=== PATIENT | male | born 1950 | race Caucasian/White ===

== ENCOUNTER 2017-11-02 11:34 | Emergency (ER) | payer OTHER ==
[~2017-11-02] VITALS: Ht 175.3 cm; Wt 97.4 kg
[~2017-11-02 11:34] MED LIST: ALEVE220 MG PO; ANTIVERT25 MG PO; AVODART0.5 MG PO; CELEBREX200 MG PO; CLEOCIN HCL300 MG PO; CLEOCIN300 MG PO; CLINDAMYCIN HC300 MG PO; EXCEDRIN MIGRA1 EAC3 PO; FIORICET 50-301 EACH PO; FLEXERIL10 MG PO; FLOMAX0.4 MG PO; GAS FREE125 MG PO; GAS-X125 MG PO; IMITREX25 MG PO; KEFLEX500 MG PO; LOMOTIL TABLET1 EACH PO; LOPID600 M1 PO; LOPID600 MG PO; LOTENSIN10 MG PO; LYRICA50 MG PO; MYLANTA GAS MA125 MG PO; NADOLOL40 MG PO; NAPROXEN500 MG PO; NEURONTIN300 MG PO; NEXIUM40 MG PO; NORCO 5/3251 TABLET PO; NORVASC2.5 MG PO; OMEPRAZOLE40 M1 PO; PAROXETINE HCL20 MG PO; PAXIL20 MG PO; PERCOCET 7.51 TABLET PO; PREVACID30 MG PO; ROXICODONE5 MG PO; TRAMADOL HCL50 MG PO; TYLENOL REGULA325 MG PO; TYLENOL WITH C1 EACH PO; VICODIN 5-5001 EACH PO; ZOFRAN4 MG PO
[2017-11-02] MEDS ORDERED: CLEOCIN300 MG PO (12:58)
[2017-11-02] MEDS ORDERED: CLEOCIN150 MG PO (12:58)
[2017-11-02 14:35] VITALS: BP 130/84
== END 2017-11-02 14:36 | disposition home or self-care (01) ==
LOC: EME 11:34
DX: K02.9 Dental caries, unspecified (principal); I10 Essential (primary) hypertension; K21.9 Gastro-esophageal reflux disease without esophagitis; F32.9 Major depressive disorder, single episode, unspecified; Z88.0 Allergy status to penicillin
CPT/HCPCS: 99281; 99283